=== PATIENT | female | born 1990 | race African-American/Black ===

== ENCOUNTER → 2021-02-25 11:50 | Outpatient (CLI) | payer BC, SELFPAY ==
--- NOTE | 2021-02-26 12:19 | PC.NURSE ---
Attempted to notify pt of results, left voicemail.
== END ==
PROVIDERS: PCP Family Medicine; Visit Provider Family Medicine
DX: Z20.822 Contact with and (suspected) exposure to COVID-19 (principal)
CPT/HCPCS: U0003